=== PATIENT | female | born 1955 | race Caucasian/White ===

== ENCOUNTER 2025-02-14 18:57 | Emergency (ER) | payer MEDICARE, SELFPAY ==
--- NOTE | ~2025-02-14 | XR_ITS ---
X-rays left fourth toe Indication: Injury Comparison: None Technique: 4 views left forefoot Findings/Impression: 1. Mildly displaced fracture fourth toe, proximal phalanx, proximal shaft. 2. No intra-articular extension. Reviewed, dictated and finalized at location R.
--- OUTSIDE RECORDS SUMMARY | 2025-02-14 18:58 | XMS_ITS | Clinical Summary ---
Author Organization [facility] al Address [address] [place] [address] Care Team Providers Care Franchise Business Consultant Name Role Phone Parvez Strong Primary Care Provider [phone] Scarlett Roberts Unavailable Unavailable Allergies Active Allergy Reactions Criticality Noted Date Comments Meperidine Palpitations Reaction: Altered Heart Rate, Preservative Palpitations Low 12/17/2021 Reaction: Altered Heart Rate, Medications oxyCODONE-aceta minophen (PERCOCET) 5-325 mg per tabletIndicatio ns:Pain Take 1-2 tablets by mouth every 6 (six) hours as needed for pain (1 tablet for mild to moderate pain or 2 tablets for severe pain) 6 tablet 2 Active buPROPion XL (WELLBUTRIN XL) 300 mg 24 hr tablet Take 300 mg by mouth graduate teaching assistant before breakfast 2 Active dexAMETHasone (DECADRON) 0.75 mg tablet 2 Active metroNIDAZOLE (FLAGYL) 250 mg tablet 2 Active Active Problems No known active problems Surgical History Surgery Date Site/Laterality Comments HYSTERECTOMY 2003 Hysterectomy Medical History Medical History Date Comments Hx Other Medical 2003 D & C Hx Other Medical 1994 orif ankle; Lat erality: left Osteoarthritis Osteoarthritis Hyperlipidemia Hyperlipidemia Hypertension Hypertension Depression Depression Anxiety Family History Medical History Relation Name Comments Alcohol abuse Other Family history of Alcoholism; Alzheimer's disease Other Family h istory of Alzheimer's Disease; Heart disease Other Family history of Heart disease; Hypertension Other Family history of Hypertension; Osteoarthritis Other Family histor y of Osteoarthritis; Other Other Family history of Cancer, kidney; Relation Name Status Comments Other Social History Tobacco Use Types Packs/Day Years Used Date Smoking Tobacco: Former Cigarettes 2 10 1 - 1989 Alcohol Use Standard Drinks/Week Comments Yes 0 (1 standard drink = 0.6 oz pur e alcohol) Comments No Sex and Gender Information Value Date Recorded Sex Assigned at Not on file Legal Sex Female 2:48 AM POLITICAL THEORY PROFESSOR Gender Identity Not on file Sexual Orientation Not on file Obstetrics History Last Filed Vital Signs Vital Sign Reading Time Taken Comments Blood Pressure 157/94 11/30/2021 3:40 AM CDT Pulse 85 11/30/2021 3:40 AM CDT Temperature 36.7 C (98.1 F) 11/30/2021 12:39 AM CDT Respiratory Rate 16 11/30/2021 12:40 AM CDT Oxygen Saturation 95% 11/30/2021 3:40 AM CDT Inhaled Oxygen Concentration - - Weight 117.9 kg (260 lb) 03/25/2022 9:14 AM CDT Height 177.8 cm (5' 10) 03/25/2022 9:14 AM CDT Body Mass Index 37.31 03/25/2022 9:14 AM CDT Plan of Treatment Health Maintenance Due Date Last Done Comments Breast Cancer Screening-Mammogram 1956 Colon Cancer Screening-Colonoscopy 1956 Depression Screening 1956 Fall Risk Assessment 1956 Hepatitis C Screening 1956 Osteoporosis Screening-Bone Density Scan 1956 Hepatitis B Screening 02/17/1974 Well Visit 65+ 02/17/2021 Covid-19 Vaccine (5 - 2023-2 5 season) 2024 09/09/2021, 03/29/2021, 07/27/2020, Additional history exists Influenza Vaccine (#1) 2025 , 02/06/2021, 03/09/2020, Additional history exists Pneumococcal vaccine 65+ (3 of 3 - PCV20 or PCV21) 02/17/2026 02/17/2021, 02/06/2021 DTaP/Tdap/Td Vaccine (3 - Td or Tdap) 05/17/2030 05/17/2020, 12/21/2013 Zoster Vaccine Completed 08/07/2021, 05/08, 03/09/2020 Insurance [facility] [employer] [employer] [employer] Care Teams Franchise Business Consultant Relationship Specialty Start Date End Date Parvez Strong PA [address] [facility] [address] [place] [address] PCP - General Physician Offal Icer Poultry 11/26/21 Scarlett Roberts COTA Occupational Therapist Occupational Therapy 01/29/22
--- OUTSIDE RECORDS SUMMARY | 2025-02-14 18:58 | XMS_ITS | Encounter Summary ---
Author Organization [facility] Address [address] [place] [address] Phone Care Team Providers Care Swine Genetics Researcher Name Role Phone Parvez Strong PAC Primary Care Provider U navailable Provider, None Primary Care Provider Unavailabl e Reason for Visit * Reason Comments Medication Refill Encounter Details Date Type Department Care Team (Late st Contact Info) Description 10/18/2020 Refill [facility] - Primary Care - [place] [address] [place] [id number] Parvez Strong, GISSELLE Medication Refill Social History Tobacco Use Types Packs/Day Years Used Date Smoking Tobacco: Former Cigarettes 2 15 0 11/06/1974 - 11/06/1989 Smokeless Tobacco: Never Alcohol Use Standard Drinks/Week Comments Yes 0 (1 standard drink = 0.6 oz pur e alcohol) Rarely PHQ-2 Answer Date Recorded PHQ-2 Score 10 02/09/2019 Education Answer Date Recorded What is the highest level of school you have completed or the highest degree you have received? 12th grade 01/27/2020 Sexually Active Control Partners Comments Yes Male, Female Comments No Sex and Gender Information Value Date Recorded Sex Assigned at Not on file Legal Sex Female 7:58 PM CDT Gender Identity Not on file Sexual Orientation Not on file documented as of this encounter Plan of Treatment Not on file documented as of this encounter Visit Diagnoses Diagnosis Generalized anxiety disorder Moderate episode of recurrent major depressive disorder (HCC) documented in this encounter Additional Health Concerns Assessment Noted Time PHQ-9 Depression Total Score: 10 019 3:00 PM CDT documented as of this encounter Care Teams Swine Genetics Researcher Relationship Specialty Start Date End Date Parvez Strong, GISSELLE PCP - General Physician Sole Stainer 01/12/20 03/19/22 Provider, None [place] PCP - General 03/20/22 documented as of this encounter
--- OUTSIDE RECORDS SUMMARY | 2025-02-14 18:59 | XMS_ITS | Clinical Summary ---
Author Organization [facility] Address [address] [place] [address] Phone Care Team Providers Care Capper Machine Operator Name Role Phone Provider, None Primary Care Provider Unavailabl e Allergies Active Allergy Reactions Criticality Noted Date Comments Meperidine Palpitations,Other ( see Comments) High Reaction: hypotension Medications hydrOXYzine (ATARAX) 25 MG Tablet 1 tab every 8 hours as needed for anxiety or sleep. 90 Tab 1 0 Active atorvastatin (LIPITOR) 20 MG TabletIndications:M ixed hyperlipidemia TAKE 1 TABLET BY MOUTH EVERY NIGHT 90 Tablet 1 1 Active CALCIUM PO Take by mouth. Active VITAMIN D PO Take by mouth. Active buPROPion (WELLBUTRIN) 300 MG TABLET SR 24 HR XL tabletIndications:G eneralized anxiety disorder,Moderate episode of recurrent major depressive disorder (HCC) TAKE 1 TABLET BY MOUTH EVERY MORNING 90 Tablet 2 Active Active Problems Problem Noted Date Diagnosed Date Mixed hyperlipidemia 01/05/2018 Generalized anxiety disorder 11/21/2017 Episode of recurrent major depressive disorder 0 11/06/2017 Obesity due to excess calories 11/06/2017 Arthritis Immunizations Immunization Administration Dates Next Due Covid-19, Mrna, Lnp-s, PF, 1 00 mcg/0.5 mL Dose (Moderna) 07/27/2020,06/29/2020 Influenza Vaccine 02/06/2021 Influenza Vaccine, Quadrivalent, PF 03/09/2020,0 02/05/2019 Pneumococcal Vaccine Adult - 23 Valent 1 TDAP Vaccine 05/17/2020 Zoster Vaccine Recombinant 05/17/2020,03/09/2020 Family History Medical History Relation Name Comments No Known Problems Brother Jonathan Cancer Father CA of Kidney, t ransitional cell Congestive Heart Failure Father Heart Attack Father 77, he had bypa ss in early 70s Kidney Disease Father Alzheimer's Disease Mother Hypertension Mother Heart Disease Sister Scarlet problem with H eart Rhy Relation Name Status Comments Brother Jonathan Alive Father Mother Sister Scarlet Alive Social History Tobacco Use Types Packs/Day Years Used Date Smoking Tobacco: Former Cigarettes 2 15 0 11/06/1974 - 11/06/1989 Smokeless Tobacco: Never Tobacco Cessation:Counseling Given: No Alcohol Use Standard Drinks/Week Comments Yes 0 [...] on file Sexual Orientation Not on file Last Filed Vital Signs Vital Sign Reading Time Taken Comments Blood Pressure 136/98 03/12/2021 7:37 AM CDT Pulse 80 03/12/2021 7:37 AM CDT Temperature 36.7 C (98 F) 03/12/2021 7:37 AM CDT Respiratory Rate 16 03/12/2021 7:37 AM CDT Oxygen Saturation 99% 03/12/2021 7:37 AM CDT Inhaled Oxygen Concentration - - Weight 125.6 kg (277 lb) 03/12/2021 7:37 AM CDT Height 175.3 cm (5' 9) 03/12/2021 7:37 AM CDT Body Mass Index 40.91 03/12/2021 7:37 AM CDT Plan of Treatment Health Maintenance Due Date Last Done Comments Cologuard 02/17/2001 Colonoscopy 02/17/2001 Colorectal Cancer Screening 02/17/2001 Immunochemical Fecal Occult Blood 02/17/2001 Pneumococcal Immunization (50+ years) (2 of 2 - PCV) 02/06/2022 02/06/2021 Influenza Immunization (#1) 02/06/2025/0 06/2020, 03/09/2020, 02/05/2019, Additional history exists SARS-COV-2 Immunization ( season) 2025 09/09/2021, 03/29/2021, 07/27/2020, Additional history exists Td Immunization Every 10 Years (Adults With 1 Tdap) 05/17/2030 05/17/2020 Respiratory Syncytial Virus (RSV) Immunization (Adult) (1 - 1-dose 75+ series) 02/17/2031 Zoster Immunization Completed 05/17/2020, 0 Pneumococcal Immunization Combined Discontinued 02/06/2021 Hepatitis C Virus (HCV) Screening Completed 03/12/2021 Hepatitis B Immunization Aged Out No longer eligible based on patient's age to complete this topic Human Papillomavirus (HPV) Immunization Aged Out No longer eligible based on patient's age to complete this topic Meningococcal Immunization (ACWY) Aged Out No longer eligible based on patient's age to complete this topic Rotavirus Immunization Aged Out No lo nger eligible based on patient's age to complete this topic Procedures Procedure Name Priority Date/Time Associated Diagnosis Comments HEPATITIS C ANTIBODY Routine 03/12/2021 8:13 AM CDT Preventative health care (Adult) from Last 3 Months or Most Recently Relevant to Health Maintenance Results * HEPATITIS C ANTIBODY (03/12/2021 8:13 AM CDT) hepatitis C antibody 0.10 <1 [facility] [id number] B 03/12/2021 10:58 PM CDT [facility] Comment: Signal/Cutoff ratio < 0.79 is Nondetected Signal/Cutoff ratio 0.80-0.99 is Grayzone Signal/Cutoff ratio > 0.99 is Detected Supplemental assays are recommended if signal/cutoff ratio is >/=1.00. Signal/cutoff ratio result >/= 5.00 is 97% predictive of positivity for recombinant immunoblot assay (RIBA) and will be reported to the [place] [facility] as required. Blood Venipuncture / Unknown 03/12/2021 8:13 AM CDT 03/12/2021 8:13 AM CDT us Parvez Strong PAC CHEMISTRY ORDERABLES Fin al Result [facility] [address] [place] [address], [place] from Last 3 Months or Most Recently Relevant to Health Maintenance Insurance [facility] Care Teams Capper Machine Operator Relationship Specialty Start Date End Date Provider, None [place] PCP - General 03/20/22
--- OUTSIDE RECORDS SUMMARY | 2025-02-14 18:59 | XMS_ITS | Encounter Summary ---
Author Organization [facility] Address [address] [place] [address] Phone Care Team Providers Care Protective Clothing Issuer Name Role Phone Parvez Strong Primary Care Provider U navailable Provider, None Primary Care Provider Unavailabl e Reason for Visit * Reason Comments Medication Refill Encounter Details Date Type Department Care Team (Late st Contact Info) Description 01/07/2021 Refill [facility] - Primary Care - [place] [address] [place] [id number] Parvez Strong PAC Medication Refill Social History Tobacco Use Types [...] on file documented as of this encounter Miscellaneous Notes * Telephone Encounter - Parvez Strong PAC - 01/07/2021 3:41 PM CDT Rx refill approved. * Telephone Encounter - Frieda Ryan RN - 01/07/2021 2:45 PM CDT Medication failed the protocol, provider to review and approve the medication order if appropriate. Requested Prescriptions Pending Prescriptions Disp Refills atorvastatin (LIPITOR) 20 MG Tablet [Pharmacy Med Name: ATORVASTATIN 20MG TABLETS] 90 Tablet 1 Sig: TAKE 1 TABLET BY MOUTH EVERY NIGHT Hmg CoA Reductase Inhibitors Protocol Failed - 01/07/2021 2:45 PM Failed - Lipid panel in past 12 months LDL Date Value Ref Range Status 07/19/2019 127 5 - 130 mg/dL Final HDL CHOLESTEROL Date Value Ref Range Status 07/19/2019 53.5 >40 mg/dL Final CHOLESTEROL Date Value Ref Range Status 07/19/2019 206 (H) <=200 mg/dL Final TRIGLYCERIDES Date Value Ref Range Status 07/19/2019 128 <150 mg/dL Final VLDL Date Value Ref Range Status 07/19/2019 26 5 - 55 mg/dL Final CHOL/HDL RATIO Date Value Ref Range Status 07/19/2019 3.9 0.0 - 4.4 Final NON-HDL CHOLESTEROL Date Value Ref Range Status 07/19/2019 152.5 (H) <130 mg/dL Final Passed - Visit with relevant provider in past 12 months or upcoming 90 days Recent Visits Date Type Provider Dept 08/13/20 [facility]medicine [facility] Strong PAC [facility] 02/01/20 Telemedicine [facility] Showing recent visits within past 365 days and meeting all other requirements Future Appointments Date Type Provider Dept 02/13/21 Appointment [facility] Showing future appointments within next 90 days and meeting all other requirements documented in this encounter Plan of Treatment Not on file documented as of this encounter Visit Diagnoses Diagnosis Mixed hyperlipidemia documented in this encounter Additional Health Concerns Assessment Noted Time PHQ-9 Depression Total Score: 10 019 3:00 PM CDT documented as of this encounter Care Teams Protective Clothing Issuer Relationship Specialty Start Date End Date Parvez Strong PAC PCP - General Physician Car Checker 01/12/20 03/19/22 Provider, None [place] PCP - General 03/20/22 documented as of this encounter
[2025-02-14 19:13] VITALS: BP 190/106; PULSE 95; RESP 20; TEMP 37.5; O2SAT 99
--- NOTE | 2025-02-14 19:42 | ED_ITS ---
HPI - General Adult General Chief complaint: Extremity Injury, Lower Stated complaint: Toe Injury Source: patient Mode of arrival: ambulatory Limitations: no limitations History of Present Illness HPI narrative: Patient presents for evaluation of pain in the 4th digit left foot. She indicates she was walking barefoot at home earlier today when her 4th toe got caught on a corner. She heard a pop. At rest she has 0/10 pain but with weightbearing her pain level increases to 5/10. She michelle taped the toe to the adjacent digit. She takes ibuprofen for some chronic knee pain. Related Data Home Medications ?Medication ?Instructions ?Recorded ?Confirmed ?Last Taken ?Type No Home Medications 02/14/25 02/14/25 U nknown History Allergies Allergy/AdvReac Type Severity Reaction Status Date / Time meperidine Allergy Mild DROP IN Verified 02/14/25 19:11 BP, NAUSEA AND VOMITING Review of Systems Review of Systems: CONSTITUTIONAL: Denies fever, chills, or sweats. EYES: Denies visual changes, redness, or discharge. ENT: Denies rhinorrhea, congestion, sore throat, or otalgia. CARDIOVASCULAR: Denies chest pain, palpitations, or edema. RESPIRATORY: Denies cough or dyspnea. GASTROINTESTINAL: Denies abdominal pain, nausea, vomiting, or diarrhea. GENITOURINARY: Denies dysuria or hematuria. SKIN: Denies rash or itching. MUSCULOSKELETAL: Reports pain in the 4th digit left foot NEUROLOGIC: Denies headache, numbness, dizziness, or weakness. PSYCHIATRIC: Denies anxiety or depression. PMFSH Past Medical History Medical History No pertinent past medical history Surgical History Surgical History No pertinent past surgical history Family History Family History Mother Family history non-contributory Social History Social History Smoking status: Never smoker Substance use: never Living arrangements: with family Gender identity (if verbalized by the patient): Female Spiritual care concerns: No Exam Narrative: GENERAL: Well-appearing, well-nourished, and in no acute distress. HEAD: Normocephalic, atraumatic. EYES: PERRLA and EOMI. ENT: Nares clear, no rhinorrhea or epistaxis. Mucous membranes moist. Oropharynx without tonsillar hypertrophy exudate or other lesions. Bilateral TMs pearly acevedo nonbulging NECK: Supple. No adenopathy or masses. No carotid bruits or JVD CHEST: Clear to auscultation. No respiratory distress. No wheezes rales or rhonchi HEART: Regular rate and rhythm. No murmur heard. Normal peripheral pulses. ABDOMEN: Soft, nontender, nondistended, normal active bowel sounds. EXTREMITIES: Able to wiggle all digits of the left foot. There is tenderness in the proximal phalanx of the 4th digit left foot. SKIN: Warm, dry, no rash. NEURO: No focal deficits. Alert and oriented x3. PSYCH: Normal mood and affect. Course Course Emergency Course: This is a 69 year female who presented for evaluation of pain in the 4th digit left toe. X-ray shows proximal phalanx fracture. Toe was michelle-taped to the adjacent digit and provided with postop shoe. Follow up with Podiatry. Weid-yra-kngnxfe agents for pain management. Go to the emergency department for intractable pain. Patient in agreement with plan care. Level of Care: Express Care Visit Vital Signs Vital signs: Vital Signs Temperature 37.5 C 02/14/25 19:13 Pulse Rate 95 02/14/25 19:13 Respiratory Rate 20 02/14/25 19:13 Blood Pressure 190/106 H 02/14/25 19:13 Pulse Oximetry 99 02/14/25 19:13 Oxygen Delivery Room Air 02/14/25 19:13 Temperature 37.5 C 02/14/25 19:13 Pulse Rate 95 02/14/25 19:13 Respiratory Rate 20 02/14/25 19:13 Blood Pressure 190/106 H 02/14/25 19:13 Pulse Oximetry 99 02/14/25 19:13 Oxygen Delivery Room Air 02/14/25 19:13 Medical Decision Making Vital Signs Vital Signs: Vital Signs Temperature 37.5 C 02/14/25 19:13 Pulse Rate 95 02/14/25 19:13 Respiratory Rate 20 02/14/25 19:13 Blood Pressure 190/106 H 02/14/25 19:13 Pulse Oximetry 99 02/14/25 19:13 Oxygen Delivery Room Air 02/14/25 19:13 Temperature 37.5 C 02/14/25 19:13 Pulse Rate 95 02/14/25 19:13 Respiratory Rate 20 02/14/25 19:13 Blood Pressure 190/106 H 02/14/25 19:13 Pulse Oximetry 99 02/14/25 19:13 Oxygen Delivery Room Air 02/14/25 19:13 Imaging Data Radiologist's impression: Ordering Physician: Sergey Jackson APRN Date of Service: 02/14/25 Procedure(s): XR toe 4th LT min 2V Accession Number(s): [id number] cc: Sergey Jackson APRN; ADVERTISING COLUMNIST PHYSICIAN~ X-rays left fourth toe Indication: Injury Comparison: None Technique: 4 views left forefoot Findings/Impression: 1. Mildly displaced fracture fourth toe, proximal phalanx, proximal shaft. 2. No intra-articular extension. Discharge Plan Discharge Clinical Impression: Closed disp fracture of proximal phalanx of lesser toe of left foot Patient Disposition: Home Condition: Stable Instructions: Antibiotic Form, Toe Fracture (ED) Patient Language: Portuguese Prescriptions: No Action No Home Medications Follow-up/Referrals: Thien,Adan Ohara DPM [Non-Staff, Unknown] Time of Disposition: 19:47
== END 2025-02-14 19:54 | disposition home or self-care (01) ==
PROVIDERS: Emergency Provider Nurse Practitioner
DX: S92.512A Displaced fracture of proximal phalanx of left lesser toe(s), initial encounter for closed fracture (principal); X58.XXXA Exposure to other specified factors, initial encounter
CPT/HCPCS: 73660; 99204; G0463